=== PATIENT | female | born 1945 | race Caucasian/White ===

== ENCOUNTER → 2018-07-29 | Outpatient (CLI) | payer MEDICARE ==
--- NOTE | 2018-08-02 09:23 | MM ---
Reason for exam: screening (asymptomatic). History: Patient is postmenopausal. MG 3D Screening Mammo W/Cad Bilateral CC and MLO view(s) were taken. There are scattered fibroglandular densities. There are stable benign calcifications. No discrete abnormality. Manage on a clinical basis the nipple inversion. No significant changes when compared with prior studies. ASSESSMENT: Benign, BI-RAD 2 RECOMMENDATION: Clinical management of the right breast. The right nipple inversion. Routine screening mammogram of both breasts in 1 year.
== END | disposition home or self-care (01) ==
LOC: RADMAMWWP 12:44
PROVIDERS: ATTEND Family Medicine
DX: Z12.31 Encounter for screening mammogram for malignant neoplasm of breast (principal)
CPT/HCPCS: 77063; 77067

== ENCOUNTER 2019-05-15 07:39 | Day surgery (SDC) | payer MEDICARE ==
[2019-05-13 09:47] VITALS: BMI 37.5
[~2019-05-15 07:39] MED LIST: LACTATED RINGERS 1,000 ML IV SCH
[2019-05-15] MEDS ORDERED: LIDOCAINE 1% 20 ML VIAL (10MG/ML) FOR IV START INTRADERMA ONE (08:20)
[2019-05-15 08:24] VITALS: TEMP 96.9
[2019-05-15] MEDS ORDERED: LIDOCAINE 1% INJ 10MG/ML (20 ML MDV) ONE (08:42)
[2019-05-15] MEDS ORDERED: PROPOFOL 10 MG/ML 20 ML VIAL IV ONE (08:42)
--- NOTE | 2019-05-15 08:47 | P.GSHP ---
History of Present Illness H&P Date: 05/15/19 Chief Complaint: Colon cancer screening [id number] female here today for colonoscopy. She has a history of colon polyps in the past. No bowel related complaints. No family history of colon cancer. Past Medical History Past Medical History: Hyperlipidemia, Thyroid Disorder Additional Past Medical History / Comment(s): occ uses cane or knee brace History of Any Multi-Drug Resistant Organisms: None Reported Past Surgical History: Orthopedic Surgery Additional Past Surgical History / Comment(s): tang cataracts, ORIF rt ankle (plate and screws), COLONOSCOPY WITH REMOVAL POLYPS X 2 Past Anesthesia/Blood Transfusion Reactions: No Reported Reaction Smoking Status: Never smoker - Past Family History Sister(s) Family Medical History: Cancer Medications and Allergies Home Medications Medication Instructions Recorded Confirmed Type Citalopram Hydrobromide 40 mg PO DAILY 05/13/19 05/15/19 History [Citalopram HBr] Levothyroxine Sodium [Synthroid] 50 mcg PO DAILY 05/13/19 05/15/19 History busPIRone HCL 15 mg PO DAILY 05/13/19 05/15/19 History Allergies Allergy/AdvReac Type Severity Reaction Status Date / Time No Known Allergies Allergy Verified 05/15/19 08:26 Surgical - Exam Vital Signs Temp Pulse Resp BP Pulse Ox 96.9 F L 80 16 138/63 96 05/15/19 08:18 05/15/19 08:18 05/15/19 08:18 05/15/19 08:18 05/15/19 08:18 Physical exam: General: Well-developed, well-nourished HEENT: Normocephalic, sclerae nonicteric Abdomen: Nontender, nondistended Extremities: No edema Neuro: Alert and oriented Assessment and Plan (1) Colon cancer screening Narrative/Plan: Will proceed with colonoscopy Current Visit: Yes Status: Acute Code(s): Z12.11 - ENCOUNTER FOR SCREENING FOR MALIGNANT NEOPLASM OF COLON SNOMED Code(s): 519853211
--- NOTE | 2019-05-15 09:01 | P.PCN ---
Date of Procedure: 05/15/19 Procedure(s) Performed: PREOPERATIVE DIAGNOSIS: Colon cancer screening, personal history of colon polyps POSTOPERATIVE DIAGNOSIS: Normal exam PROCEDURE: Colonoscopy ANESTHESIA: MAC SURGEON: Rafi Vann M.D. SPECIMENS: None ENDOSCOPIC PROCEDURE: The patient was placed on the endoscopy table in the left decubitus position. The Olympus colonoscope was inserted into the anus and passed under direct visualization to the base of the cecum. The appendiceal orifice was visualized. From that point the scope was slowly withdrawn inspecting all surfaces carefully. There were no neoplastic inflammatory or polypoid lesions throughout the cecum, ascending, transverse, descending, sigmoid and rectum. There was no diverticulosis noted. Digital rectal examination was normal. The patient was taken to the recovery room in stable condition per anesthesia guidelines. RECOMMENDATIONS: Increase fiber. Follow-up colonoscopy 5 years given history of previous polyps.
[2019-05-15 09:09] VITALS: RESP 18
[2019-05-15 09:24] VITALS: BP 121/53; PULSE 82
== END 2019-05-15 09:36 | disposition home or self-care (01) ==
LOC: ORWHC2ENDO 07:39
PROVIDERS: ATTEND Surgery
DX: Z12.11 Encounter for screening for malignant neoplasm of colon (principal); Z86.010 Personal history of colon polyps; E78.5 Hyperlipidemia, unspecified; E07.9 Disorder of thyroid, unspecified; F39 Unspecified mood [affective] disorder; Z98.41 Cataract extraction status, right eye; Z98.42 Cataract extraction status, left eye; Z98.890 Other specified postprocedural states; Z79.890 Hormone replacement therapy; Z79.899 Other long term (current) drug therapy; Z80.9 Family history of malignant neoplasm, unspecified
CPT/HCPCS: J2001; J2704; G0105

== ENCOUNTER → 2020-02-08 | Outpatient (CLI) | payer MEDICARE ==
--- NOTE | 2020-02-08 13:57 | MR ---
EXAMINATION TYPE: MR knee RT wo con DATE OF EXAM: 02/08/2020 COMPARISON: X-ray 02/03/2020 HISTORY: Right knee pain and swelling, twisted Knee about 2 weeks ago. TECHNIQUE: Multiplanar, multisequence imaging of the right knee is performed without IV contrast. FINDINGS: MEDIAL MENISCUS: There is complex tear posterior horn medial meniscus. LATERAL MENISCUS: Intrasubstance signal seen in the anterior and posterior horn felt most typical myx oid degeneration. CRUCIATE LIGAMENTS: The anterior and posterior cruciate ligaments are intact and unremarkable. COLLATERAL LIGAMENTS: There is increased signal at the origin of the lateral collateral ligament sugg estive of strain and possible intrasubstance tear medial collateral ligament has a normal appearance. EXTENSOR MECHANISM: Visualized quadriceps and patellar tendons are intact. EFFUSION: No significant suprapatellar joint effusion. POPLITEAL CYST: No popliteal/george cyst. TRICOMPARTMENT SPACES: There is narrowing of the patellofemoral joint and medial compartment of the k nee joint with no erosive changes. 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 There is grade III chondromalacia of the femoral medial and lateral articular cartilage. Rounded abnormal s ignal measuring 1 cm adjacent to the medial tibial plateau could represent fluid within the bursa or small ganglion or para meniscal cyst. BONE MARROW SIGNAL: Abnormal marrow signal in the patella likely is post arthritic and reactive. Abno rmal signal involving medial femoral condyle likely is post arthritic reactive. Osteochondritis not e ntirely excluded. IMPRESSION: 1. Complex tear posterior horn medial meniscus 2. Intrasubstance signal origin lateral vertebral ligament suggestive of strain or partial intrasubst ance tear. 3. Post arthritic changes with grade IV chondromalacia involving the patellar cartilage and grade III chondromalacia involving the medial and lateral femoral articular cartilage. Abnormal marrow involvi ng the medial articular femur may BE reactive and post arthritic rather than representing osteochondr itis. Correlate clinically. 4. There is a area of abnormal signal along the posterior margin of the upper tibia medially. This ap pears to be at the insertion of the semimembranosus tendon which appears to be thickened with intrasu bstance signal correlate for tendinosis or partial tear.
== END | disposition home or self-care (01) ==
LOC: RADMRIMAIN 09:05
PROVIDERS: ATTEND Orthopaedic Surgery
DX: S83.241A Other tear of medial meniscus, current injury, right knee, initial encounter (principal); M17.31 Unilateral post-traumatic osteoarthritis, right knee; M22.41 Chondromalacia patellae, right knee; R93.7 Abnormal findings on diagnostic imaging of other parts of musculoskeletal system

== ENCOUNTER → 2020-03-16 | Outpatient (CLI) | payer MEDICARE ==
--- NOTE | 2020-03-17 10:29 | MM ---
Reason for exam: screening (asymptomatic). Last mammogram was performed 1 year and 8 months ago. History: Patient is postmenopausal. Physical Findings: A clinical breast exam by your physician is recommended on an annual basis and results should be correlated with mammographic findings. MG 3D Screening Mammo W/Cad Bilateral CC and MLO view(s) were taken. Prior study comparison: July 29, 2018, bilateral MG 3d screening mammo w/cad. There are scattered fibroglandular densities. Stable benign calcifications. There is no discrete abnormality. No significant changes when compared with prior studies. ASSESSMENT: Benign, BI-RAD 2 RECOMMENDATION: Routine screening mammogram of both breasts in 1 year.
== END | disposition home or self-care (01) ==
LOC: RADMAMWWP 13:23
PROVIDERS: ATTEND Family Medicine
DX: Z12.31 Encounter for screening mammogram for malignant neoplasm of breast (principal)
CPT/HCPCS: 77063; 77067

== ENCOUNTER → 2020-03-16 | Outpatient (CLI) | payer MEDICARE ==
[2020-03-16 14:47] LABS: Basophils # (A) 0.1 k/uL (0-0.2); Basophils % (A) 2 %; Eosinophils # (A) 0.3 k/uL (0-0.7); Eosinophils % (A) 5 %; HCT 40.6 % (34.0-46.0); HGB 13.2 gm/dL (11.4-16.0); Lymphocytes # (A) 2.1 k/uL (1.0-4.8); Lymphocytes % (A) 30 %; MCH 30.3 pg (25.0-35.0); MCHC 32.6 g/dL (31.0-37.0); Mean Platelet Volume 8.6; Monocytes # (A) 0.3 k/uL (0-1.0); Monocytes % (A) 5 %; Neutrophils # (A) 3.9 k/uL (1.3-7.7); Neutrophils % (A) 56 %; Platelet Count 290 k/uL (150-450); RBC 4.36 m/uL (3.80-5.40); RDW 12.5 % (11.5-15.5); WBC 6.9 k/uL (3.8-10.6)
[2020-03-16 14:59] LABS: Albumin 4.5 g/dL (3.5-5.0); Calcium 9.6 mg/dL (8.4-10.2); Potassium 4.2 mmol/L (3.5-5.1); Total Bilirubin 0.5 mg/dL (0.2-1.3); Total Protein 7.6 g/dL (6.3-8.2)
[2020-03-16 15:17] LABS: T4, Free (Free Thyroxine) 1.3 ng/dL (0.78-2.19)
== END | disposition home or self-care (01) ==
LOC: LABPAT 13:29
PROVIDERS: ATTEND Orthopaedic Surgery
DX: Z01.818 Encounter for other preprocedural examination (principal); M23.91 Unspecified internal derangement of right knee
CPT/HCPCS: 36415; 80053; 80061; 84439; 84443; 85025; 93005

== ENCOUNTER → 2020-03-31 | Day surgery (SDC) | payer MEDICARE ==
[2020-03-30 09:05] VITALS: BMI 34.0
--- NOTE | 2020-03-30 18:58 | HP ---
HISTORY AND PHYSICAL DATE OF SURGERY: 03/31/2020 Inna Bartlett is a 74-year-old patient seen with progressive right knee pain. Options for treatment were discussed with her. She elected to proceed with arthroscopy. Consent was obtained. PAST MEDICAL HISTORY: Hypothyroidism, hypertension. PAST SURGICAL HISTORY: Cataract surgery, ankle surgery. DAILY MEDICATIONS: Levothyroxine and vitamins. ALLERGIES: NONE. SOCIAL HISTORY: She denies current tobacco use. PHYSICAL EVALUATION OF THE RIGHT KNEE: Range of motion 0 to 110 degrees. There is a mild effusion. Tenderness along the medial joint line. Positive medial Teagan's. Patellofemoral crepitus with range of motion. Ligaments stable. Hip rotation without pain. Distal neurovascular exam intact. RADIOGRAPHS: Radiographs of the right knee revealed osteoarthritic changes. MRI of the right knee revealed medial meniscal tear and osteoarthritic changes. IMPRESSION: 1. Internal derangement of the right knee with medial meniscal tear. 2. Right knee osteoarthritis. 3. Hypothyroidism. PLAN: Right knee arthroscopy with partial meniscectomy, partial synovectomy and debridement. MMODL / IJN: [id number] /
[~2020-03-31] MED LIST changes: +BUPIVACAINE (PF) 0.25% 30 ML VIAL INTRAARTIC ONE; +DEXAMETHASONE SOD PHOSPHATE 10 MG/ML 1 ML VIAL IV ONE; +HYDROmorphone 0.5 MG/0.5 ML SYRINGE IVP PRN; +KETOROLAC 15 MG/ML 1 ML VIAL IVP ONE; -LACTATED RINGERS 1,000 ML IV SCH; +LIDOCAINE 1% (10MG/ML) FOR IV START INTRADERMA PRN; +ONDANSETRON 4 MG/2 ML VIAL IVP ONE; +ONDANSETRON 4 MG/2 ML VIAL IVP PRN
[2020-03-31] MEDS: LACTATED RINGERS 1,000 ML IV SCH ×2 (09:59→13:50)
--- NOTE | 2020-03-31 12:44 | P.OP ---
Date of Procedure: 03/31/20 Preoperative Diagnosis: Internal derangement right knee Postoperative Diagnosis: 1. Tear medial meniscus right knee 2. Grade 4 chondromalacia medial femoral condyle right knee 3. Reactive synovitis medial, lateral and suprapatellar compartments right knee Procedure(s) Performed: 1. Arthroscopic partial medial meniscectomy right knee 2. Arthroscopic chondroplasty medial femoral condyle right knee 3. Arthroscopic microfracture medial femoral condyle right knee 4. Arthroscopic partial synovectomy medial, lateral and suprapatellar compartments right knee Anesthesia: DAWITA, local Surgeon: Suleman Palmer Estimated Blood Loss (ml): 7 Pathology: none sent Condition: stable Disposition: PACU Indications for Procedure: 74-year-old patient seen with progressive right knee pain. After treatment options were discussed, she elected to proceed with arthroscopy Operative Findings: see description of procedure Description of Procedure: Patient was taken to the operative suite. Patient underwent a general anesthetic by the department of anesthesia. Patient was given preoperative antibiotics. The right lower extremity was placed in a well-padded arthroscopic leg guerra. The right leg was prepped and draped in the normal sterile orthopedic fashion. A lateral parapatellar and suprapatellar incision was made. Trochars were inserted. Arthroscopy was initiated. Suprapatellar pouch revealed diffuse thick reactive synovitis. The patellofemoral joint appeared articulate congruently. There was grade 1/2 chondromalacia with no osteochondral tears present. The scope was guided into the medial gutter. No loose bodies or plica were identified. The scope was then guided into the medial compartment. A medial parapatellar incision was made. Trocar inserted followed by probe. There was a complex tear posterior medial meniscus. There were areas of grade 3/4 chondromalacia weightbearing surface medial femoral condyle with a large osteochondral flap tear present. There was thick reactive some-itis anteriorly. I performed a partial medial meniscectomy. I performed a chondroplasty of the medial femoral condyle. I performed a partial synovectomy decompressing the thick reactive synovitis anteriorly. There was an area of exposed bone weightbearing surface medial femoral condyle. I performed a microfracture in that area penetrating the bone with resultant bleeding at the microfracture site. The residual meniscus was found to be stable. The residual osteochondral surface was stable. There was good decompression synovitis. Scope and probe were then guided into the intercondylar notch. Cruciates were identified, probed and found to be stable. The scope and probe were then guided into lateral compartment. Lateral meniscus was probed and found be stable. There were grade 1 chondromalacia changes lateral compartment with no osteochondral tears present. There was some thick reactive some-itis anteriorly. I introduced a motorized shaver and performed a partial synovectomy decompressing reactive synovitis. Shaver was removed. There was good decompression of the synovitis. The scope was in guided back into the suprapatellar compartment. I introduced a motorized shaver into the suprapatellar compartment. I debrided some piecemeal fragments of meniscus I encountered. I performed a partial synovectomy decompressing reactive synovitis. Shaver was removed. There was good decompression of the synovitis. Instruments were now removed from the joint. The joint was infiltrated with .25% Marcaine. Steri-Strips were applied to the portal sites. Sterile dressings were applied. The patient was placed into a YONATAN hose. No tourniquet was utilized. The patient was awakened, transferred to a bed and taken to recovery stable satisfactory condition.
[2020-03-31 12:51] VITALS: TEMP 97.3
[2020-03-31 13:05] VITALS: RESP 16
[2020-03-31] MEDS: METOPROLOL TARTRATE 5 MG/5 ML VIAL IVP ONE ×2 (13:20→13:25)
[2020-03-31 15:28] VITALS: BP 132/76; PULSE 84
== END | disposition home or self-care (01) ==
LOC: OR 09:24
PROVIDERS: ATTEND Orthopaedic Surgery
DX: S83.241A Other tear of medial meniscus, current injury, right knee, initial encounter (principal); X58.XXXA Exposure to other specified factors, initial encounter; M94.261 Chondromalacia, right knee; M17.11 Unilateral primary osteoarthritis, right knee; M65.861 Other synovitis and tenosynovitis, right lower leg; E03.9 Hypothyroidism, unspecified; I10 Essential (primary) hypertension; E78.5 Hyperlipidemia, unspecified; Z98.49 Cataract extraction status, unspecified eye; Z98.890 Other specified postprocedural states; F41.9 Anxiety disorder, unspecified; F32.9 Major depressive disorder, single episode, unspecified; Z97.2 Presence of dental prosthetic device (complete) (partial); Z79.890 Hormone replacement therapy; Z79.899 Other long term (current) drug therapy
CPT/HCPCS: 29881; 29879; 29876; J1100; J0690; J2405; J1885; J1170